=== PATIENT | female | born 1975 | race Caucasian/White ===

== ENCOUNTER 2018-01-18 09:45 | Day surgery (SDC) | payer BC ==
[2018-01-17 13:46] VITALS: BMI 35.0
[~2018-01-18 09:45] MED LIST: BUPIVACAINE HCL/PF 0.5% (5MG/ML) 10 ML VIAL IJ ONE
[2018-01-18 11:10] LABS: HCG,QUALITATIVE URINE NEGATIVE
[2018-01-18 11:12] LABS: URINE APPEARANCE SLCLOUDY; URINE BILIRUBIN NEGATIVE (<2.0 mg/dL); URINE BLOOD NEGATIVE (NEGATIVE); URINE COLOR LTYELLOW; URINE GLUCOSE (UA) NEGATIVE (NEGATIVE); URINE KETONE NEGATIVE (NEGATIVE); URINE LEUK ESTERASE TRACE (NEGATIVE); URINE NITRITE NEGATIVE (NEGATIVE); URINE PROTEIN NEGATIVE (NEGATIVE); URINE UROBILINOGEN NEGATIVE mg/dL (0.2-1.0)
[2018-01-18 11:14] LABS: EPI CELLS FEW /HPF (FEW); URINE MUCUS RARE
[2018-01-18] MEDS ORDERED: ceFAZolin SODIUM 1 GM VIAL ONE (11:35)
[2018-01-18] MEDS ORDERED: fentaNYL CITRATE 250 MCG/5 ML VIAL ONE ×2 (11:35→12:57)
[2018-01-18] MEDS ORDERED: DEXAMETHASONE SOD PHOSPHATE 4 MG/1 ML VIAL ONE ×2 (11:35→11:38)
[2018-01-18] MEDS ORDERED: PROPOFOL 20 ML ONE (11:37)
[2018-01-18] MEDS ORDERED: ROCURONIUM BROMIDE 50 MG/5 ML VIAL ONE (11:38)
[2018-01-18] MEDS ORDERED: MIDAZOLAM HCL 2 MG/2 ML SINGLE DOSE VIAL ONE (11:38)
--- NOTE | 2018-01-18 12:16 | HP ---
DATE OF ADMISSION: 01/18/2018 CHIEF COMPLAINT: Right abdominal pain and GE reflux disease secondary to malfunctioning gastric band. HISTORY OF PRESENT ILLNESS: The patient is a 42-year-old woman who complains of right abdominal pain and was recently diagnosed with cholelithiasis on ultrasound. She also had a Lap-Band for approximately 5-1/2 years, and during that time, she has had increased amounts of GE reflux with the vomiting and occasional epigastric discomfort during eating. She presented now with removal of the gastric band plus her subcutaneous port and also cholecystectomy to remove the gallbladder. PAST MEDICAL HISTORY: Unremarkable. PAST SURGICAL HISTORY: Lap-Band in 2011, T and A, uterine surgery in 2017. MEDICATIONS: Include Lexapro. ALLERGIES: Multiple medications including AMOXICILLIN, ROCEPHIN, PRIMAXIN, and ALL OF THE PENICILLINS. FAMILY HISTORY: Significant for father with asthma and hypertension. Mother with hypertension. REVIEW OF SYMPTOMS: Neurologic: Within normal limits. Cardiac: Within normal limits. Pulmonary: Within normal limits. Gastrointestinal: Within normal limits. Musculoskeletal: Within normal limits. PHYSICAL EXAMINATION: General: A 42-year-old female awake and alert in no acute distress. HEENT: No masses palpated. Lungs: Clear bilaterally. Heart: Regular sinus rhythm. Abdomen: Well-healed trocar incision. Soft, nontender on palpation in all quadrants. Extremities: Within normal limits. IMPRESSION: 1. Cholelithiasis with chronic cholecystitis. 2. Malfunctioning implantable device secondary to gastric band. PLANNED PROCEDURE: OR for laparoscopic removal of gastric band plus subcutaneous port plus laparoscopic cholecystectomy, possible open procedure. Isaura [id number]
[2018-01-18] MEDS ORDERED: BUPIVACAINE HCL/PF 0.5% (5MG/ML) 10 ML VIAL IJ ONE (14:12)
[2018-01-18] MEDS ORDERED: ONDANSETRON 4 MG/2 ML VIAL IVPUSH PRN ×2 (14:16→14:35)
[2018-01-18] MEDS ORDERED: DESFLURANE GAS 240 ML BOTTLE IH ONE (14:23)
[2018-01-18] MEDS ORDERED: LACTATED RINGERS SOLUTION 1,000 ML IV SCH (14:30)
[2018-01-18] MEDS ORDERED: oxyCODONE HCL 5 MG TABLET PO PRN (14:35)
[2018-01-18] MEDS ORDERED: ENOXAPARIN NA (PORCINE) 40 MG/0.4 ML DISP.SYRIN SQ ONE ×2 (14:35→17:26)
[2018-01-18] MEDS ORDERED: SODIUM CHLORIDE 1,000 ML IV SCH (14:45)
--- NOTE | 2018-01-18 14:51 | SURG ---
Surgery Motor Vehicles Supervisor Note Motor Vehicles Supervisor: Nico Lopez PA-C Date of Service: 01/18/18 Diagnosis: Morbid obesity, chronic cholecystitis/cholelithiasis Procedure: Laparoscopic removal of gastric band & cholecystectomy I was present for the entirety of the operative procedure. For further detail, please refer to operative report. Visit type - Case Type Case Type: Scheduled Admission
--- NOTE | 2018-01-18 14:52 | OP ---
Operative Note - Note: Operative Date: 01/18/18 Pre-Operative Diagnosis: Cholelithiasis with chronic cholecystitis. Epigastric pain. Malfunctioning mechanical device secondary to gastric band Operation: Laparoscopic cholecystectomy. Removal of gastric band plus sub-Q port. Laparoscopic lysis of adhesions. Excision of fibrous capsule around stomach. Diagnostic Laparoscopy Findings: Gallbladder with significant scar tissue Lap band with adhesions and fibrous capsule secondary to wrap Post-Operative Diagnosis: Same as Pre-op (Abdominal adhesions; fibrous capsule around stomach) Surgeon: Gee Hood Poultry Farmworker: Nico Lopez Anesthesia: General Specimens Removed: Gastric Band plus sub-Q port. Gallbladder Estimated Blood Loss (mls): 100 Operative Report Dictated: Yes
[2018-01-18] MEDS ORDERED: FAMOTIDINE 20 MG/50 ML IVPB 20 MG/50 ML MG IVPB ONE (15:44)
[2018-01-18] MEDS ORDERED: FAMOTIDINE 20 MG PREMIXED IVPB IVPB ONE (15:45)
--- NOTE | 2018-01-18 15:52 | OP ---
DATE OF OPERATION: 01/18/2018 PREOPERATIVE DIAGNOSIS: 1. Cholelithiasis with chronic cholecystitis. 2. Epigastric abdominal pain. 3. Vomiting. 4. Malfunctioning implantable device secondary to gastric band. PREOPERATIVE DIAGNOSIS: 1. Cholelithiasis with chronic cholecystitis. 2. Epigastric pain. 3. Vomiting. 4. Malfunctioning implantable device secondary to gastric band. 5. Abdominal adhesions. 6. Fibrous capsule around the stomach. PROCEDURES PERFORMED: 1. Removal of gastric band plus subcutaneous port component. 2. Laparoscopic cholecystectomy. 3. Laparoscopic lysis of adhesions. 4. Excision of fibrous capsule around the stomach. 5. Diagnostic laparoscopy. OPERATING SURGEON: Gee Hood M.D. MIRROR INSPECTOR SURGEON: Maggie Boland ANESTHESIA: General. OPERATIVE PROCEDURE: The patient was brought into the operating room, placed on the OR table in a supine position. All precautions were taken initially including padding for the back and the feet, and Venodyne boots were placed on both lower extremities. At that point, the area was prepped and draped in usual manner. A Veress needle was placed in the left upper quadrant, and a pneumoperitoneum was established. A number 5 bladeless trocar was placed under optic vision with the laparoscopic camera in place safely and easily in the left upper quadrant. Using now the camera guide, there was noted to be a fair amount of adhesions between the omentum and the anterior abdominal wall on the falciform and also toward the midline. At that point a number 12 bladeless trocar was then placed in the supraumbilical position just above the umbilicus. This was followed by 2 number 5 bladeless trocars in the right upper quadrant. Using these as working ports, the adhesions between the omentum and the anterior abdominal wall in the midline and a little bit to the left were lysed with electrocautery. This provided a view now to the left lobe of the liver and where the band was. Attention was now directed to the gallbladder, where a number 12 bladeless trocar was placed just to right of the falciform ligament up below the xiphoid. As the digital sales assistant surgeon retracted the gallbladder over the liver edge, the operating surgeon was able to dissect some adhesions between the omentum and the gallbladder from the patient's previous bouts of cholecystitis. These were done mostly with blunt dissection with laparoscopic instruments but occasionally needed electrocautery to do it. Once the adhesions were cleaned, attention now directed to gallbladder. The gallbladder held upward in order to provide vision. The operating surgeon was able to use the electrocautery to dissect the triangle of Calot. This was done on both medial and lateral side of the gallbladder, and when it was completed, the cystic duct came in view. The tissue around the cystic duct was skeletonized, but not only the cystic duct was visible. After multiple attempts to clean the cystic duct completely, there was found to be good vision so that the cystic duct was seen entering the gallbladder and with a good distance away from the cystic duct, common duct junction. Here [address] distally, 1 proximally on the gallbladder, and the cystic duct was now transected. Attention was directed more posterior where dissection continued with the electrocautery until the cystic artery was found. Cystic artery was dissected clear of all other tissue and was seen obviously going into the gallbladder. Here 2 clips were placed distally, 1 proximally, and the cystic artery was transected. At this point electrocautery was used to dissect the gallbladder off the liver bed; this continued from an inferior to superior direction until the gallbladder was removed from the liver. The gallbladder was now removed with the Endocatch out through the number 11 trocar in the midline just above the umbilicus. Attention was now directed to the liver bed where no bleeding was noted and no sign of any bile leak. Irrigation was placed, and it was suctioned until clear. Right upper quadrant over the liver edge also was suctioned multiple times until clear, and no further fluid was noted. Attention was now directed to the gastric band around the upper stomach. Changing the number 5 left upper quadrant trocar to a number 12 and adding a number 5 trocar below left costal margin the patient, who had been placed in reverse Trendelenburg position of approximately 10 degrees was now lifted up to 20 degrees to provide better visualization. At this point, the Bobo liver retractor was placed in the epigastrium to retract left lobe of liver. There was noted to be adhesions to the omentum and the undersurface of the liver right where the band and the tubing were coming off the stomach. These adhesions were lysed with electrocautery, and the electrocautery continued to lyse the adhesions and scar tissue over the band tubing until it led to the band itself. As the digital sales assistant surgeon retracted the band toward the patient's left side, the operating surgeon was able to dissect the scar tissue off the band on the lesser curvature side of the stomach until it was fully in view. At this point the operating surgeon pulled the band toward the patient's right side and the digital sales assistant surgeon retracted the stomach inferiorly. Again, electrocautery was used to score the scar tissue in the fibrous capsule over the band until the band was in full view in the greater curve and now easily mobilized. The band was then opened up, and the tubing was cut at the take off to the subcutaneous port, and then the band was removed from around the stomach and sent off the field as a specimen to pathology. Attention was now directed to fibrous capsule around the stomach. With the operating surgeon and digital sales assistant surgeon holding it up on both sides, the operating surgeon placed a laparoscopic scissors underneath it to dissect it and then cut the fibrous capsules from inferior to superior and then peeled it off the stomach wall, so the whole anterior surface of the stomach wall was free of fibrous capsule. At this point, the midline supraumbilical port was closed with endo closure device to prevent internal hernia and to prevent bleeding. Under direct vision, all trocars were removed, and pneumoperitoneum was released. The right upper quadrant number 15 port site was extended laterally with a scalpel and dissection continued down to the port on the right anterior rectus muscle. The fibrous capsule over the port was removed with electrocautery and the port was then removed from the right anterior rectus muscle and sent off the field as specimen with the rest of the band. At this point all trocar sites received 0.25% Marcaine, and the number 11 trocar sites were closed with 3-0 Vicryl in the subcutaneous tissue, and then all trocars were closed with 4-0 Biosyn subcuticular fashion. Dressings were applied, patient awoken from anesthesia, and transferred out of the operating room to the recovery room in stable condition. EXPECTED BLOOD LOSS: 100 mL. DISPOSITION: Patient transferred to recovery room in stable condition. Isaura [id number]
[2018-01-18 16:04] LABS: HEMOGLOBIN 11.9 GM/dL (10.7-15.3); MCHC 33.1 g/dl (32.0-36.0); MEAN CELL VOLUME 78.5 fl (80-96); MEAN PLT VOLUME 10.2 fl (7.5-11.1); PLATELET COUNT 268 K/MM3 (134-434); RBC 4.59 M/mm3 (3.60-5.2); RDW 14.6 % (11.6-15.6); WHITE BLOOD COUNT 14.5 K/mm3 (4.0-10.0)
[2018-01-18 16:56] LABS: ANION GAP 6 (8-16); BLOOD UREA NITROGEN 18 mg/dL (7-18); CALCIUM 7.9 mg/dL (8.5-10.1); CHLORIDE 105 mmol/L (98-107); CO2 26 mmol/L (21-32); GLUCOSE,RANDOM 154 mg/dL (74-106); POTASSIUM 4.4 mmol/L (3.5-5.1); SODIUM 137 mmol/L (136-145)
[2018-01-18 16:57] LABS: CREATININE 0.7 mg/dL (0.55-1.02)
[2018-01-18] MEDS: oxyCODONE HCL 5 MG TABLET PO PRN (21:57)
[2018-01-18] MEDS: FAMOTIDINE 20 MG/50 ML IVPB 20 MG/50 ML MG IVPB SCH (22:00)
[2018-01-19] MEDS: oxyCODONE HCL 5 MG TABLET PO PRN (06:41)
[2018-01-19 08:09] LABS: HEMATOCRIT 34.7 % (32.4-45.2); HEMOGLOBIN 11.4 GM/dL (10.7-15.3); MCH 25.9 pg (25.7-33.7); MCHC 32.7 g/dl (32.0-36.0); MEAN CELL VOLUME 79.2 fl (80-96); PLATELET COUNT 292 K/MM3 (134-434); RBC 4.38 M/mm3 (3.60-5.2); RDW 14.7 % (11.6-15.6); WHITE BLOOD COUNT 12.3 K/mm3 (4.0-10.0)
[2018-01-19 08:19] LABS: ALK PHOS 68 U/L (45-117); ANION GAP 5 (8-16); BILIRUBIN,TOTAL 0.4 mg/dL (0.2-1.0); BLOOD UREA NITROGEN 10 mg/dL (7-18); CHLORIDE 107 mmol/L (98-107); CO2 27 mmol/L (21-32); CREATININE 0.6 mg/dL (0.55-1.02); GLUCOSE,RANDOM 95 mg/dL (74-106); SGOT/AST 20 U/L (15-37); SGPT/ALT 30 U/L (12-78); SODIUM 139 mmol/L (136-145); TOT PROT 6.2 g/dl (6.4-8.2)
[2018-01-19] MEDS: ESCITALOPRAM OXALATE 10 MG TABLET (FP) PO SCH ×2 (08:57→09:03)
[2018-01-19] MEDS: FAMOTIDINE 20 MG/50 ML IVPB 20 MG/50 ML MG IVPB SCH ×2 (08:57→09:04)
[2018-01-19] MEDS: ENOXAPARIN NA (PORCINE) 40 MG/0.4 ML DISP.SYRIN SQ ONE ×2 (08:58→09:04)
[2018-01-19 09:06] VITALS: BP 110/62; PULSE 73; TEMP 99.1
--- NOTE | 2018-01-22 13:41 | PATH ---
Surgical Pathology Report Patient Name: TRACEY SCOTT [facility]. Rec. #: [id number] /Age/Gender: 1975 (Age: 42) / F Account: [id number] Location: [facility] SURGICAL Taken: 01/18/2018 Received: 01/21/2018 Reported: 01/22/2018 Physicians: Gee Hood M.D. Specimen(s) Received A: GALLBLADDER B: GASTRIC BAND OLD Clinical History Cholelithiasis, malfunctioning gastric band Final Diagnosis A. GALLBLADDER, LAPAROSCOPIC CHOLECYSTECTOMY: CHRONIC CHOLECYSTITIS AND CHOLESTEROLOSIS. B. GASTRIC BAND, OLD, REMOVAL: GASTRIC BAND AND PORT-A-CATH. MACROSCOPIC DIAGNOSIS. Electronically Signed Larissa Marie M.D. Gross Description A. Received in formalin, labeled "gallbladder," is a 8.8 x 2.3 x 1.8 cm. gallbladder with a 0.2 cm. in length portion of cystic duct attached. The outer surface is quinn green and varies from smooth to shaggy. The lumen contains green, tenacious bile. There are no choleliths identified within the lumen or within the container. The mucosa is green and velvety with gold cholesterol stippling. The wall of the gallbladder ranges from 0.1-0.2 cm. in thickness. Mannequin Sander And Finisher sections are submitted in one cassette. B. Received fresh labeled "old gastric band," is a 4.5 cm in diameter white, annular device, consistent with a gastric band. The band displays a 17 cm in length portion of tubing extending from one aspect. Also received within the same container is a 3 cm in diameter x 1.5 cm in depth white, circular device, consistent with a klaus cath. The Port-A-Cath displays a 26.5 cm in length portion of white tubing extending from one aspect. No soft tissue is present. No sections are submitted, gross only. 01/21/201801/21/2018
== END 2018-01-19 12:09 | disposition home or self-care (01) ==
LOC: JASU-SURG 09:45 → J8W 20:00 → JASU-SURG 01-19 12:09
PROVIDERS: ATTEND Surgery
PROC: 0FT44ZZ Resection of Gallbladder, Percutaneous Endoscopic Approach (ICD-10-PCS; principal; 2018-01-18 11:00)
PROC: 0DP64YZ Removal of Other Device from Stomach, Percutaneous Endoscopic Approach (ICD-10-PCS; 2018-01-18 11:00)
DX: K80.10 Calculus of gallbladder with chronic cholecystitis without obstruction (principal); K95.09 Other complications of gastric band procedure
CPT/HCPCS: 36415; 80048; 80053; 81003; 81015; 84703; 85027; 86850; 86900; 86901; 88300-TC; 88304-TC; 94010; 94760; J7030